=== PATIENT | male | born 1975 | race African-American/Black ===

== ENCOUNTER 2017-02-21 22:53 | Emergency (ER) | payer OTHER ==
[~2017-02-21] VITALS: Ht 195.6 cm; Wt 111.4 kg
[2017-02-21] MEDS ORDERED: LISI10TA4 PO (23:13)
[2017-02-22] MEDS ORDERED: NORCO, ANEXSIA 5/325MG TABLET (HYDROcodone/ACETAMINOPHEN) PO ONE (01:00)
[2017-02-22 02:09] VITALS: BP 158/88
[2017-02-22] MEDS ORDERED: NAPR500T3 PO (02:15)
[2017-02-22] MEDS ORDERED: ROBA500T PO (02:15)
--- NOTE | 2017-02-22 09:13 | REP ---
Lumbar spine series: Five views. History: Pain. Findings: Five views of the lumbar spine demonstrate preserved vertebral body heights and normal alignment. There is disc space narrowing at L4-5 and to a lesser extent at L3-4 consistent with degenerative disc disease at these levels. Pedicles and posterior elements are intact. Psoas margins are symmetric. Sacrum and SI joints are unremarkable. There is sacralization of the L5 transverse processes bilaterally and there is a spina bifida occulta at L5. Impression: Degenerative disc changes L3-4 L4-5. Transitionalized lumbosacral junction. No acute bony abnormality. Signed by Daniel Kerr MD 02/22/2017 10:12 A
== END 2017-02-22 02:29 | disposition home or self-care (01) ==
LOC: M ED 22:53
DX: G89.29 Other chronic pain (principal); M54.5 Low back pain; M62.830 Muscle spasm of back; I10 Essential (primary) hypertension; Z79.899 Other long term (current) drug therapy